=== PATIENT | female | born 1950 | race Two or more races ===

== ENCOUNTER 2017-08-24 07:00 | Day surgery (SDC) | payer OTHER ==
[~2017-08-24] VITALS: Ht 165.1 cm; Wt 104.8 kg
[~2017-08-24 07:00] MED LIST: CLONAZEPAM1 MG PO; GABAPENTIN800 MG PO; PAROXETINE PO; PREDNISONE PO; TYLENOL ARTHRI650 MG PO; TYLENOL-CODEINE1 TA1 PO; ZIAC 10/6.25 MG1 TAB PO
[2017-08-25] MEDS ORDERED: GABAPENTIN800 MG PO (11:31)
[2017-08-25] MEDS ORDERED: ACETAMINOPHEN-1 EAC2 PO (11:31)
[2017-08-25] MEDS ORDERED: AMOX-CLAV 875-1 EACH PO (11:31)
[2017-08-25] MEDS ORDERED: DOCUSATE SODIU100 MG PO (11:31)
== END 2017-08-25 13:00 | disposition home or self-care (01) ==
LOC: CIR.AMB 07:00 → SURH 12:00 → EDSTATUS 12:45 → O/R 15:44 → PED 15:44 → CIR.AMB 08-25 13:00 → PED 08-25 13:31
DX: M48.061 Spinal stenosis, lumbar region without neurogenic claudication (principal); I10 Essential (primary) hypertension